=== PATIENT | female | born 1990 | race Caucasian/White ===

== ENCOUNTER → 2020-01-16 16:32 | Outpatient (BNVA) | payer BC, SELFPAY | PROVIDERS: PCP Nurse Practitioner Family; Visit Provider Nurse Practitioner Family | DX: Z00.00 Encounter for general adult medical examination without abnormal findings (principal); Z13.6 Encounter for screening for cardiovascular disorders | CPT/HCPCS: 80061; 80323; 82947 ==

== ENCOUNTER → 2021-01-12 11:04 | Outpatient (BNVA) | payer BC, SELFPAY | PROVIDERS: PCP Nurse Practitioner Family; Visit Provider Nurse Practitioner Family | DX: Z00.00 Encounter for general adult medical examination without abnormal findings (principal); Z13.6 Encounter for screening for cardiovascular disorders | CPT/HCPCS: 80061; 80323; 82947 ==

== ENCOUNTER 2021-03-18 10:12 | Outpatient (CLI) | payer BC, SELFPAY ==
[2021-03-18 10:51] VITALS: BP 144/97; PULSE 85; RESP 20; TEMP 36.7; O2SAT 95; BMI 30.1
[2021-03-18 11:33] VITALS: BP 140/93; PULSE 74; RESP 19; TEMP 36.8; O2SAT 97
[2021-03-18 12:36] VITALS: BP 129/88; PULSE 82; RESP 16; TEMP 36.6; O2SAT 97
== END 2021-03-18 10:13 | disposition home or self-care (01) ==
LOC: OPS 10:13
PROVIDERS: PCP Nurse Practitioner Family; Visit Provider Nurse Practitioner Family
DX: U07.1 COVID-19 (principal)
CPT/HCPCS: 96365

== ENCOUNTER → 2022-01-26 16:17 | Outpatient (BNVA) | payer BC, SELFPAY | PROVIDERS: PCP Nurse Practitioner Family; Visit Provider Nurse Practitioner Family | DX: J02.0 Streptococcal pharyngitis (principal) | CPT/HCPCS: 87880 ==

== ENCOUNTER → 2022-10-10 08:35 | Outpatient (BNVA) | payer BC, SELFPAY | PROVIDERS: PCP Nurse Practitioner Family; Visit Provider Nurse Practitioner Family | DX: N92.6 Irregular menstruation, unspecified (principal) | CPT/HCPCS: 84702 ==

== ENCOUNTER → 2024-09-06 11:57 | Outpatient (BNVA) | payer BC, SELFPAY | PROVIDERS: PCP Nurse Practitioner Family; Visit Provider Nurse Practitioner Family | DX: O26.851 Spotting complicating pregnancy, first trimester (principal) | CPT/HCPCS: 84702 ==

== ENCOUNTER → 2024-09-09 08:22 | Outpatient (BNVA) | payer BC, SELFPAY | PROVIDERS: PCP Nurse Practitioner Family; Visit Provider Nurse Practitioner Family | DX: Z34.91 Encounter for supervision of normal pregnancy, unspecified, first trimester (principal) | CPT/HCPCS: 84702 ==